=== PATIENT | female | born 1980 | race Caucasian/White ===

== ENCOUNTER 2020-02-11 13:13 | Emergency (ER) | payer SELFPAY ==
[~2020-02-11] VITALS: Ht 165.1 cm; Wt 77.3 kg
[2020-02-11 13:25] VITALS: BP 110/76; TEMP 98.4
[2020-02-11] MEDS ORDERED: DOXYCYCLINE HY100 MG PO (14:31)
[2020-02-11 14:43] VITALS: PULSE 89
== END 2020-02-11 14:40 | disposition home or self-care (01) ==
LOC: COL.ER 13:13
DX: L03.114 Cellulitis of left upper limb (principal); F17.210 Nicotine dependence, cigarettes, uncomplicated; Z98.51 Tubal ligation status; Z90.89 Acquired absence of other organs

== ENCOUNTER 2020-04-02 10:52 | Emergency (ER) | payer SELFPAY ==
[~2020-04-02] VITALS: Ht 165.1 cm; Wt 84.1 kg
[~2020-04-02 10:52] MED LIST: DOXYCYCLINE HY100 MG PO
[2020-04-02 11:00] VITALS: BP 117/71; TEMP 97.6
[2020-04-02] MEDS ORDERED: NORCO 325 MG-51 TAB PO (12:37)
[2020-04-02 13:09] VITALS: PULSE 76
== END 2020-04-02 13:15 | disposition home or self-care (01) ==
LOC: COL.ER 10:52
DX: S62.174A Nondisplaced fracture of trapezium [larger multangular], right wrist, initial encounter for closed fracture (principal); S62.001A Unspecified fracture of navicular [scaphoid] bone of right wrist, initial encounter for closed fracture; F17.210 Nicotine dependence, cigarettes, uncomplicated; W01.0XXA Fall on same level from slipping, tripping and stumbling without subsequent striking against object, initial encounter; Y92.009 Unspecified place in unspecified non-institutional (private) residence as the place of occurrence of the external cause

== ENCOUNTER → 2020-04-07 | Outpatient (CLI) | payer SELFPAY ==
[~2020-04-07] MED LIST changes: +NORCO 325 MG-51 TAB PO
== END ==
LOC: COL.RAD 09:37
DX: M25.531 Pain in right wrist (principal); M25.431 Effusion, right wrist

== ENCOUNTER 2021-01-11 10:40 | Emergency (ER) | payer SELFPAY ==
[~2021-01-11] VITALS: Ht 165.1 cm; Wt 93.2 kg
[2021-01-11 10:47] VITALS: BP 147/91; PULSE 94; TEMP 98
[2021-01-11 11:25] LABS: COLLECTION METHOD CLEAN CATCH
[2021-01-11 11:27] LABS: BASO # 0.1 (0.0-0.2); BASO % 0.5 % (0.0-2.0); EOS # 0.3 (0.0-0.7); EOS % 3.2 % (0-4.0); GRAN % 58.8 % (42.2-75.2); HEMATOCRIT 37.3 % (37.0-47.0); HEMOGLOBIN 12.2 g/dl (12.5-16.0); LYMPH # 3.1 (1.2-3.4); LYMPH % 30.1 % (20.0-51.0); MEAN CELL VOLUME 88 fl (80.0-100.0); MEAN CORPUSCULAR HEMOGLOBIN 29 pg (27.0-31.0); MEAN CORPUSCULAR HGB CONC 33 g/dl (33.0-37.0); MEAN PLATELET VOLUME 9.1 fl (7.4-10.4); MONO # 0.7 (0.1-0.6); MONO % 7.2 % (1.7-9.3); PLATELET COUNT 332 K/mm3 (130-400); RED BLOOD COUNT 4.22 M/mm3 (4.10-5.30); REDCELL DISTRIBUTION WIDTH-CV 12.4 % (11.5-14.5)
[2021-01-11 11:31] LABS: MUCOUS Present /lpf; PH 5 (5-8); SQUAMOUS EPITHELIAL 0-2 /hpf; URINE APPEARANCE Clear; URINE BACTERIA None Seen /hpf; URINE BILIRUBIN Negative (NEGATIVE); URINE BLOOD Negative (NEGATIVE); URINE COLOR Yellow; URINE GLUCOSE Negative (NEGATIVE); URINE KETONE Negative (NEGATIVE); URINE LEUKOCYTE ESTERASE Negative (NEGATIVE); URINE NITRATE Negative (NEGATIVE); URINE PROTEIN(semi-quant) 1+ (NEGATIVE); URINE RBC 0-2 /hpf
[2021-01-11 11:41] LABS: ALANINE AMINOTRANSFERASE 12 U/L (4-34); ALKALINE PHOSPHATASE 56 U/L (50-136); ANION GAP 7 mmol/L (7-16); AST,SGOT 21 U/L (15-37); BILIRUBIN,TOTAL 0.4 mg/dL (0.0-1.0); BLOOD UREA NITROGEN 15 mg/dL (7-17); CALCIUM 9.2 mg/dL (8.4-10.2); CARBON DIOXIDE 24 mmol/L (22-30); CHLORIDE 108 mmol/L (98-107); CREATININE, serum 0.61 (0.52-1.25); GLUCOSE 100 mg/dL (74-106); SODIUM 139 mmol/L (137-145); TOTAL PROTEIN 7.3 gm/dL (6.4-8.2)
[2021-01-11 11:50] LABS: C-REACTIVE PROTEIN < 0.5 mg/dL (0.0-0.9)
== END 2021-01-11 12:24 | disposition home or self-care (01) ==
LOC: COL.ER 10:40
PROVIDERS: Nurse Practitioner
DX: A59.01 Trichomonal vulvovaginitis (principal); N93.9 Abnormal uterine and vaginal bleeding, unspecified; E66.9 Obesity, unspecified; F17.200 Nicotine dependence, unspecified, uncomplicated; Z88.1 Allergy status to other antibiotic agents; Z87.42 Personal history of other diseases of the female genital tract; Z88.2 Allergy status to sulfonamides; Z32.02 Encounter for pregnancy test, result negative

== ENCOUNTER 2021-03-16 18:13 | Emergency (ER) | payer SELFPAY ==
[~2021-03-16] VITALS: Ht 165.1 cm; Wt 86.4 kg
[2021-03-16 18:24] VITALS: TEMP 97.7
[2021-03-16 22:20] VITALS: BP 144/70; PULSE 60
== END 2021-03-16 22:20 | disposition home or self-care (01) ==
LOC: COL.ER 18:13
DX: G43.019 Migraine without aura, intractable, without status migrainosus (principal); F17.210 Nicotine dependence, cigarettes, uncomplicated
CPT/HCPCS: J0595; J1200; J1885; J2765; J7030

== ENCOUNTER 2022-08-30 23:51 | Emergency (ER) | payer SELFPAY ==
[~2022-08-30] VITALS: Ht 165.1 cm; Wt 90.9 kg
[~2022-08-30 23:51] MED LIST changes: +FLAGYL500 MG PO; +LEVAQUIN 750MG750 M1 PO; +MOTRIN 800800 MG/TAB PO; +PROAIR HFA0.09 MG/AC IH
[2022-08-30 23:55] VITALS: BP 163/106; TEMP 97.2
[2022-08-31 00:51] VITALS: PULSE 74
== END 2022-08-31 00:52 | disposition home or self-care (01) ==
LOC: COL.ER 23:51
DX: S61.216A Laceration without foreign body of right little finger without damage to nail, initial encounter (principal); Z23 Encounter for immunization; W26.8XXA Contact with other sharp object(s), not elsewhere classified, initial encounter

== ENCOUNTER → 2023-09-13 | Outpatient (CLI) | payer SELFPAY ==
[2023-09-13 11:53] LABS: HEMATOCRIT 40.6 % (37.0-47.0); HEMOGLOBIN 13.2 g/dl (12.5-16.0); MEAN CELL VOLUME 87 fl (80.0-100.0); MEAN CORPUSCULAR HEMOGLOBIN 28 pg (27-31); MEAN CORPUSCULAR HGB CONC 33 g/dl (33.0-37.0); MEAN PLATELET VOLUME 9.5 fl (7.4-10.4); PLATELET COUNT 317 K/mm3 (130-400); RED BLOOD COUNT 4.67 M/mm3 (4.10-5.30); REDCELL DISTRIBUTION WIDTH-CV 12.4 % (11.5-14.5)
[2023-09-13 12:10] LABS: ALBUMIN 3.5 gm/dL (3.5-5.0); BILIRUBIN,TOTAL 0.2 mg/dL (0.2-1.2); CHOLESTEROL RISK RATIO 3.4; CREATININE, serum 0.72 mg/dL (0.57-1.11); POTASSIUM 4.5 mmol/L (3.5-4.5); TOTAL PROTEIN 7.8 gm/dL (6.2-8.1)
[2023-09-13 12:30] LABS: THYROID STIMULATING HORMONE 1.155 uIU/mL (0.350-4.940)
== END ==
LOC: COL.LAB 10:13
PROVIDERS: Family Medicine
DX: I10 Essential (primary) hypertension (principal); E66.9 Obesity, unspecified; G43.909 Migraine, unspecified, not intractable, without status migrainosus